=== PATIENT | male | born 1990 | race Two or more races ===

== ENCOUNTER 2025-04-25 11:45 | Emergency (ER) | payer BC, MEDICAID, OTHER ==
[~2025-04-25] VITALS: Ht 180.3 cm; Wt 96.0 kg
--- NOTE | 2025-04-25 12:01 | ED.PDOC ---
General HPI Comments 34-year-old male with no reported PMHx presents with a chief complaint of dysuria and groin pain x onset this morning. Patient states that his pain is localized to his groin area, nonradiating, describes as aching, and rates his pain a 8/10. Patient denies any discharge from his penis or any recent unsafe sexual practices. Patient is able to urinate, but states that it is painful to do so and continues to trickle out afterwards. Vital signs were stable Chief Complaint: Pelvic Pain Time Seen by MD: 11:55 Reviewed notes: Nurses Notes, Medications, Allergies Allergies: Coded Allergies: Sulfamethoxazole w/Trimethoprim (Verified Allergy, Unknown, 04/25/25) Information Source: Patient Mode of Arrival: Ambulatory Severity: Moderate Inability to void: None Timing: Days Duration: Since onset Has not urinated for: Minutes Prehospital treatment: None Onset: Spontaneous Symptoms: Dysuria History of: None Location: Suprapubic Penile discharge: None Modifying factors: None associated signs and symptoms: Dysuria Past Medical History PAST MEDICAL HISTORY: Denies Surgical History: Denies all surgeries Family History Family History: Reviewed,noncontributory to illness Social History Smoker: Non-Smoker Alcohol: Denies ETOH Use Drugs: Denies Drug Use Lives In: Home Constitutional: denies: chills, diaphoresis, fatigue, fever, malaise, sweats, weakness, others EENTM: denies: blurred vision, double vision, ear bleeding, ear discharge, ear drainage, ear pain, ear ringing, eye pain, eye redness, hearing loss, mouth pain, mouth swelling, nasal discharge, nose bleeding, nose congestion, nose pain, photophobia, tearing, throat pain, throat swelling, voice changes, others Respiratory: denies: cough, hemoptysis, orthopnea, SOB at rest, shortness of breath, SOB with excertion, stridor, wheezing, others Cardiovascular: denies: chest pain, dizzy spells, diaphoresis, Dyspnea on exertion, edema, irregular heart beat, left arm pain, lightheadedness, palpitations, PND, syncope, others Gastrointestinal: denies: abdomen distended, abdominal pain, blood streaked bowels, constipated, diarrhea, dysphagia, difficulty swallowing, hematemesis, melena, nausea, poor appetite, poor fluid intake, rectal bleeding, rectal pain, vomiting, others Genitourinary: reports: dysuria, pain (Pelvic); denies: burning, flank pain, frequency, hematuria, incontinence, penile discharge, penile sore, testicle pain, testicle swelling, urgency, others Neurological: denies: dizziness, fainting, headache, left sided numbness, left sided weakness, numbness, paresthesia, pre-existing deficit, right sided numbness, right sided weakness, seizure, speech problems, tingling, tremors, weakness, others Musculoskeletal: denies: back pain, gout, joint pain, joint swelling, muscle pain, muscle stiffness, neck pain, others Integumetry: denies: bruises, change in color, change in hair/nails, dryness, laceration, lesions, lumps, rash, wounds, others Allergic/Immunocompromised: denies: Difficulty Healing, Frequent Infections, Hives, Itching, others Hematologic/Lymphatic: denies: anemia, blood clots, easy bleeding, easy bruising, swollen glands, others Endocrine: denies: excessive hunger, excessive sweating, excessive thirst, excessive urination, flushing, intolerance to cold, intolerance to heat, unexplained weight gain, unexplained weight loss, others Psychiatric: denies: anxiety, bipolar disorder, depression, hopeless, panic disorder, schizophrenia, sleepless, suicidal, others All Other Systems: Reviewed and Negative Physical Exam General Appearance: Moderate Distress (Patient was in [id number] distress due to his urinary complaints and pelvic pain), Normal HEENT: Normal ENT Inspection, Pharynx Normal, TMs Normal Neck: Full Range of Motion, Non-Tender, Normal, Normal Inspection Respiratory: Chest Non-Tender, Lungs Clear, No Accessory Muscle Use, No Respiratory Distress, Normal Breath Sounds Cardiovascular: No Edema, No JVD, No Murmur, No Gallop, Normal Peripheral Pulses, Regular Rate/Rhythm Breast Exam: Deferred Gastrointestinal: No Pulsatile Mass, Normal Bowel Sounds, Soft, Tenderness (Diffuse [id number]-ar-fqypnysq tenderness to palpation in bilateral pelvic region. No definitive suprapubic tenderness.) Genitalia: Deferred Pelvic: Deferred Rectal: Deferred Extremities: No calf tenderness, Normal capillary refill, Normal inspection, Normal range of motion, Non-tender, No pedal edema Musculoskeletal : Apperance: Normal Neurologic: Alert, No Motor Deficits, Normal Affect, Normal Mood, No Sensory Deficits Cerebellar Function: Normal Reflexes: Normal Skin: Dry, Normal Color, Warm Lymphatic: No Adenopathy Was a procedure done? Was a procedure done?: No Differential Diagnosis Kidney stone (Female): Other (Urinary tract infection, pyelonephritis, constipation, appendicitis, hernia) X-Ray, Labs, Meds, VS Vital Signs Date Time Temp Pulse Resp B/P (MAP) Pulse Ox O2 Delivery O2 Flow Rate FiO2 04/25/25 13:11 75 18 97 Room Air 04/25/25 13:11 98.6 75 18 135/94 (108) 97 98.6 04/25/25 11:48 98.0 86 18 126/82 97 98.0 Lab Test 04/25/25 13:00 04/25/25 12:00 Range/Units White Blood Count 18.8 H 4.4-10.8 10^3/uL Red Blood Count 5.13 4.5-5.90 10^6/uL Hemoglobin 15.7 13.5-17.5 g/dL Hematocrit 45.1 41.0-53.0 % Mean Corpuscular Volume 87.9 80.0-100.0 fL Mean Corpuscular Hemoglobin 30.6 28.0-32.0 pg Mean Corpuscular Hemoglobin Concent 34.8 32.0-36.0 g/dL Red Cell Distribution Width 13.3 11.8-14.3 % Platelet Count 312 140-450 10^3/uL Mean Platelet Volume 7.6 6.9-10.8 fL Neutrophils (%) (Auto) 74.4 37.0-80.0 % Lymphocytes (%) (Auto) 13.3 10.0-50.0 % Monocytes (%) (Auto) 9.6 0.0-12.0 % Eosinophils (%) (Auto) 1.7 0.0-7.0 % Basophils (%) (Auto) 1.0 0.0-2.0 % Neutrophils # (Auto) 14.0 H 1.6-8.6 10 ^3/uL Lymphocytes # (Auto) 2.5 0.4-5.4 10 ^3/uL Monocytes # (Auto) 1.8 H 0-1.3 10 ^3/uL Eosinophils # (Auto) 0.3 0-0.8 10 ^3/uL Basophils # (Auto) 0.2 0-0.2 10 ^3/uL Nucleated Red Blood Cells 0.1 % Sodium Level 139 136-145 mmol/L Potassium Level 3.9 3.5-5.1 mmol/L Chloride Level 104 98-107 mmol/L Carbon Dioxide Level 27 20-31 mmol/L Anion Gap 8 5-15 Blood Urea Nitrogen 8 L 9-23 mg/dL Creatinine 1.02 0.700-1.30 mg/dL Glomerular Filtration Rate Calc 98 >90 mL/min BUN/Creatinine Ratio 7.8 L 10.0-20.0 Serum Glucose 100 74-106 mg/dL Calcium Level 9.9 8.7-10.4 mg/dL Urine Color Yellow Yellow Urine Clarity Clear Clear Urine pH 5.5 5.0-9.0 Urine Specific Oliver 1.023 1.001-1.035 Urine Protein Negative Negative Urine Ketones Negative Negative Urine Blood Negative Negative /uL Urine Nitrite Negative Negative Urine Bilirubin Negative Negative Urine Urobilinogen Normal Negative mg/dL Urine Leukocyte Esterase Negative Negative /uL Urine RBC <1 0 - 3 /hpf Urine Microscopic WBC 1 0-3 /HPF Urine Squamous Epithelial Cells Few <5 /hpf Urine Bacteria None seen None Seen /hpf Urine Mucus Few None Seen Urine Glucose Normal Normal mg/dL Current Medications Medications (Trade) Dose Ordered Sig/Francisca Route Start Time Stop Time Status Last Admin Ketorolac Tromethamine (Toradol Injection) 30 mg ONCE ONCE IM 04/25/25 12:00 04/25/25 12:02 DC 04/25/25 13:06 X-Ray, Labs, Meds, VS Comment All studies performed at the ED today were evaluated by me personally. Initial urinalysis was unremarkable for any UTI, pyelonephritis or kidney stone concern. I then ordered minimal labs that revealed a leukocytosis and then ordered a CT with contrast that was unremarkable for any acute intra-abdominal process. Unknown as the cause of the patient's white blood cell concerns. Patient will be sent home with some antibiotics to treat any general concerns as well as supportive medication. Advised following up with primary care provider or return to ED if symptoms change or patient begins to become febrile. Time of 1ST Reevaluation: 15:38 Reevaluation 1ST: Improved Consultation: PCP Patient Education/Counseling: Diagnosis, Treatment, Need For Follow Up Family Education/Counseling: Diagnosis, Treatment, No Family Present SEPSIS Sepsis Screen Date sepsis recognized/suspect: Apr 25, 2025 Time Sepsis recognized/suspect: 1150 Recent Procedure: No On Antibiotic Therapy: No Respiratory Rate >20: No Heart Rate >90: No Temp<36 C (96.8 F) or >38.3 C: No SBP <90 or MAP <65 mmHG: No New Acute Mental Status Change: No Is the patient on CPAP, BIPAP,: No Physician Orders Ct Ab Pel With Iv Con Only (04/25/25 12:52) Saline Lock (04/25/25 12:56) Vital Signs Date Time Temp Pulse Resp B/P (MAP) Pulse Ox O2 Delivery O2 Flow Rate FiO2 04/25/25 13:11 75 18 97 Room Air 04/25/25 13:11 98.6 75 18 135/94 (108) 97 98.6 04/25/25 11:48 98.0 86 18 126/82 97 98.0 Laboratory Tests Test 04/25/25 13:00 White Blood Count 18.8 10^3/uL (4.4-10.8) H Medications Medications Dose Ordered Sig/Francisca Route Start Time Stop Time Status Last Admin Dose Admin Ketorolac Tromethamine 30 mg ONCE ONCE IM 04/25/25 12:00 04/25/25 12:02 DC 04/25/25 13:06 Departure 1 Departure Time of Disposition: 15:39 Impression: Primary Impression: Dysuria Additional Impression: Pelvic pain Disposition: HOME / SELF CARE / HOMELESS Condition: Stable Additional Instructions: Advise utilizing antibiotics as directed and additional medication as needed. If symptoms continue, patient will need to follow up with the primary care prov ider for continued evaluation or return to ED for reassessment. e-Prescriptions Acetaminophen (Acetaminophen) 500 Mg Tab 500 MG PO Q4HP PRN, #30 TAB Prov: XANDER GONZALEZ PAC 04/25/25 Ibuprofen Micronized (Ibuprofen) 800 Mg Tab 800 MG PO Q8HP PRN, #15 TAB Prov: XANDER GONZALEZ PAC 04/25/25 Amoxicillin & Pot Clavulanate (AUGMENTIN TABLET) 875 Mg Tb 875 MG PO BID for 5 Days, #10 TAB Prov: XANDER GONZALEZ PAC 04/25/25 Discharged With: Self, Friend Critical Care Note Critical Care Time?: No Stability Stability form required: No Heart Score Heart Score: Heart Score Response (Comments) Value History N/A 0 EKG N/A 0 Age N/A 0 Risk Factors N/A 0 Troponin N/A 0 Total 0 I personally scribed for XANDER GONZALEZ PAC ([email or web address]) on 04/25/25 at 12:01. Electronically submitted by Karan Spring ([email or web address]). XANDER GONZALEZ PAC Apr 25, 2025 12:01
[2025-04-25 12:28] LABS: Urine Protein, UAD Negative (Negative)
[2025-04-25] MEDS: PHENAZOPYRIDINE HCL 100 MG TAB PO ONE (13:06)
[2025-04-25] MEDS: KETOROLAC TROMETH 60MG/2ML VIAL IM ONE (13:06)
[2025-04-25 13:32] LABS: Hematocrit 45.1 % (41.0-53.0); Hemoglobin 15.7 g/dL (13.5-17.5); Mean Corpuscular Hemoglobin 30.6 pg (28.0-32.0); Mean Corpuscular Volume 87.9 fL (80.0-100.0); Nucleated Red Blood Cells % 0.1 %
[2025-04-25 13:41] LABS: Chloride 104 mmol/L (98-107); Potassium 3.9 mmol/L (3.5-5.1); Sodium 139 mmol/L (136-145)
[2025-04-25 13:42] LABS: Anion Gap 8 (5-15); Carbon Dioxide 27 mmol/L (20-31)
[2025-04-25 13:43] LABS: Calcium 9.9 mg/dL (8.7-10.4)
[2025-04-25 13:47] LABS: BUN/Creatinine Ratio 7.8 (10.0-20.0); Glucose 100 mg/dL (74-106)
[2025-04-25 13:50] LABS: Blood Urea Nitrogen 8 mg/dL (9-23)
[2025-04-25] MEDS: IOHEXOL 300 MG/ML 100ML BOTTLE IJ ONE (14:26)
--- NOTE | 2025-04-25 15:01 | DVH ---
Indication: Urinary concerns Technique: CT axial images of the abdomen and pelvis are obtained with intravenous contrast. Coronal and sagittal reformats were obtained. Radiation Dose Information: CTDI volume is 23 mGy. Dose-length product is 1404 mGy*cm Comparison: None FINDINGS: Lung bases demonstrate no pleural effusion. Adrenal glands, spleen, pancreas unremarkable. Hepatic steatosis. No CT evidence for cholelithiasis. No hydronephrosis. Stomach partially distended. Small bowel loops normal in caliber. Colonic diverticular disease. Moderate volume stool within the colon. Normal appendix. Abdominal aorta normal in caliber. Bladder partially distended. No free pelvic fluid. No inguinal ly mphadenopathy. Interbody disc spacer at L5-S1 moderate neural foraminal stenosis at L5-S1. Overall limited character ization secondary to beam hardening artifact. Vorm-yk-qcwoyexy degenerative changes of the bilateral hips with cam type femoral acetabular impingement IMPRESSION: Bladder partially distended. Moderate neural foraminal stenosis L5-S1. Interbody disc spacer at L5-S1. Cam type femoral acetabular impingement bilaterally Colonic diverticular disease. Hepatic steatosis. Other findings as described.
[2025-04-25] MEDS ORDERED: AUG875T PO (15:42)
[2025-04-25] MEDS ORDERED: IBUP-1455 PO (15:42)
[2025-04-25] MEDS ORDERED: ACET500T58 PO (15:42)
[2025-04-25 15:49] VITALS: BP 136/88; PULSE 59; RESP 18; TEMP 98.1; O2SAT 99
== END 2025-04-25 15:50 | disposition home or self-care (01) ==
LOC: ER 11:48
DX: R30.0 Dysuria (principal); R10.2 Pelvic and perineal pain
CPT/HCPCS: 36415; 74177; 80048; 81001; 85025; 96372; 99285; J1885; Q9967